=== PATIENT | female | born 2000 | race Caucasian/White ===

== ENCOUNTER 2022-05-22 01:15 | Inpatient (IN) ==
[2022-05-22] MEDS ORDERED: OXYTOCIN 30 UNITS/500 ML BAG IV PRN ×2 (01:28→04:26)
[2022-05-22] MEDS ORDERED: LACTATED RINGER'S 1,000 ML IV PRN (01:28)
[2022-05-22] MEDS ORDERED: SODIUM CHLORIDE 0.9% INJ 10 ML VIAL ONE (01:42)
[2022-05-22] MEDS ORDERED: LIDOCAINE 2%/EPINEPHRINE 1:200,000 20 ML SDV ONE (01:42)
[2022-05-22] MEDS ORDERED: fentaNYL citrate 100 MCG/2 ML VIAL ONE (01:42)
[2022-05-22] MEDS ORDERED: BUPIVACAINE 0.25% 30 ML VIAL ONE (01:42)
[2022-05-22] MEDS ORDERED: ePHEDrine sulfate 50 MG/ML AMP ONE (01:42)
[2022-05-22] MEDS ORDERED: fentaNYL 2MCG/ML ROPIVACAINE 1.25MG/ML 100 ML BAG EPI ONE (01:43)
[2022-05-22 02:01] LABS: Hematocrit (blood only) 30.2 % (34.1-44.9); Hemoglobin 10.1 g/dl (12.0-16.0); Mean Corpuscular Hemoglobin 28.1 pg (25.0-34.0); Mean Corpuscular Hgb Conc 33.4 g/dL (32.0-36.0); Mean Corpuscular Volume 84.1 fL (80.0-100.0); Mean Platelet Volume 9.7 fL (9.4-12.3); Platelet Count 248 K/uL (130-400); RDW Coefficient of Variation 12.9 % (11.5-14.5); RDW Standard Deviation 39.5 fL (36.4-46.3); Red Blood Count 3.59 M/uL (3.93-5.22); White Blood Count 15.08 K/ul (4.8-10.8)
--- NOTE | 2022-05-22 02:31 | Anesthesiology Consultation ---
Date of Service May 22, 2022 Assessment & Plan Chart Review Chart Review: Acceptable Risk for Labor Epidural Consults Requested none History Height/Weight Height: 5 ft 3 in Weight: 56.245 kg Allergies Allergy/AdvReac Type Severity Reaction Status Date / Time kiwi Allergy Severe "BURNT OFF Verified 05/19/22 08:21 TASTEBUDS" Medications Home Medications Medication Instructions Recorded Confirmed Last Taken prenat.vits,marti,[id number] 1 tab PO DAILY 11/10/21 05/21/22 05/20/22 Past Medical History Medical History Alteration in self-care as evidenced by altered eating Classic migraine with aura Late period No pertinent family history No pertinent past medical history Non-smoker Pigmented nevus Tinea versicolor Past Family History Family History Denies family history of Ovarian cancer Breast cancer Colorectal cancer Uterine cancer Past Surgical History Surgical History No pertinent past surgical history Social History Smoking Status: Former smoker Do You Dip or Chew Tobacco: No Hx Alcohol Use: No Hx Substance Use: No substance use type: does not use Physical Exam Vital Signs Last Vital Signs Temp 36.6 C 05/22/22 01:50 Pulse 81 05/22/22 02:29 Resp 22 05/22/22 01:50 BP 133/76 05/22/22 02:29 Pulse Ox 99 05/22/22 02:26 Testing Laboratory Results 05/22/22 01:50
[2022-05-22] MEDS ORDERED: NALOXONE HCL 1 MG in SODIUM CHLORIDE 0.9% 1000ML 1,000 ML IV PRN (02:32)
[2022-05-22] MEDS ORDERED: ePHEDrine sulfate 50 MG/ML AMP IV PRN (02:32)
[2022-05-22] MEDS ORDERED: fentaNYL 2MCG/ML ROPIVACAINE 1.25MG/ML 100 ML BAG EPI PRN (02:32)
[2022-05-22] MEDS ORDERED: NALOXONE HCL 0.4 MG/1 ML VIAL/CARP IV PRN (02:32)
[2022-05-22] MEDS ORDERED: diphenhydrAMINE 50 MG/ML VIAL IV PRN (02:32)
[2022-05-22] MEDS ORDERED: NALBUPHINE HCL INJ 10 MG/ML AMP IV PRN (02:32)
[2022-05-22] MEDS ORDERED: DIPHTHERIA/TETANUS/PERTUSSIS 0.5 ML SYR/VIAL IM ONE (04:26)
[2022-05-22] MEDS ORDERED: HYDROCORTISONE ACETATE 25 MG SUPP PR PRN (04:26)
[2022-05-22] MEDS ORDERED: ACETAMINOPHEN 325 MG TAB PO PRN (04:26)
[2022-05-22] MEDS ORDERED: BENZOCAINE 20% AER SPR 82.5 GM CAN EXT PRN (04:26)
--- NOTE | 2022-05-22 07:30 | History & Physical Report ---
Date of Service May 22, 2022 Assessment & Plan (1) Supervision of normal intrauterine in primigravida: (2) Poor weight gain of : (3) Normal labor and delivery: Lety López is a 22-year-old 39 weeks 4 days gestational age in active labor. Patient underwent spontaneous rupture of membranes for clear fluid. NST currently reactive. Patient will receive an epidural. labs pending vitals normal. History of Present Illness Primary Care Provider: KEVIN PCP Maribel is a 22-year-old admitted at 39 weeks 4 days gestational age in active labor with spontaneous rupture of membranes. otherwise complicated by poor maternal weight gain. OB Labs: Blood Type B Positive 11/11/21 Antibody ScreenD NEGATIVE 11/11/21 Hemoglobin 10.5 g/dL (12.0-16.0) L 03/17/22 Hematocrit 31.4 % (37-47) L 03/17/22 Mean Corpuscular Volume 86.1 fL (80-100) 11/11/21 Platelet Count 266 K/uL (130-400) 11/11/21 Rubella IgG Antibody Immune (Immune) 11/11/21 Rapid Plasma Reagin Nonreactive (Nonreactive) 11/11/21 Hepatitis B Surface Antigen Neg (Neg) 11/11/21 Hepatitis C Antibody Neg (Neg) 11/11/21 HIV (1&2) Ab and P24 Ag, 4th Gener Neg (Neg) 11/11/21 Glucose 1 Hour 50 gm Load 112 mg/dl (70-130) 03/17/22 OB Optional Labs: Chlamydia trachomatis RNA NOT DETECTED (NOT DETECTED) 11/11/21 Neisseria gonorrhoeae RNA NOT DETECTED (NOT DETECTED) 11/11/21 Labs Reviewed: Declines cf/sma--mln Declines cfdna--mln declined afp Allergies Allergy/AdvReac Type Severity Reaction Status Date / Time kiwi Allergy Severe "BURNT OFF Verified 05/19/22 08:21 TASTEBUDS" Home Medications Medication Instructions Recorded Confirmed Type prenat.vits,marti,ojr-[id number]-[id number] 1 tab PO DAILY 11/10/21 05/21/22 History Patient History Medical History (Updated 05/22/22 @ 07:29 by Sudhakar Velarde MD) Alteration in self-care as evidenced by altered eating Classic migraine with aura Late period No pertinent family history No pertinent past medical history Non-smoker Pigmented nevus Tinea versicolor Surgical History No pertinent past surgical history Family History Denies family history of Ovarian cancer Breast cancer Colorectal cancer Uterine cancer Social History (Updated 11/10/21 @ 13:37 by Franny Heaton) Smoking Status: Former smoker Tobacco Type: Cigarettes and E-cigarettes / Vaping Second Hand Exposure: No; Do You Dip or Chew Tobacco: No; Tobacco Cessation Education Requested by Patient: No Hx Alcohol Use: No Hx Substance Use: No Preferred Language: Slovenian Communication Ability: Effective Police Stenographer Required: No Beliefs That Will Affect Care: None marital status: Single marital status details: [place] Dc [phone] Current Living Situation: Other Current Living Situation Comment: lives with friend current occupational status: unemployed Other Information That Helps Us Care for You: No Feels Safe at Home: Yes Safety Concerns: Feels Safe At This Time Assistive Devices: None Physical Exam Genitourinary: Manual OB Exam: + cervical dilation 7 cm, + cervical effacement 90%, + station 0 and + amniotic fluid clear OB Exam Monitor Tracing: + external FHT monitor used, + external uterine monitor used, + category I and + normal FHT variability; no early decelerations present, no late decelerations present and no variable decelerations Exam per nurse Coding Level of Care Code None Diagnoses Supervision of normal intrauterine in primigravida Z34.00 Poor weight gain of O26.10 Normal labor and delivery O80
[2022-05-22] MEDS: FERROUS SULFATE 325 MG TAB PO SCH (08:11)
[2022-05-22] MEDS: PRENATAL VITAMIN 1 TAB PO SCH (08:11)
[2022-05-22] MEDS: DOCUSATE SODIUM 100 MG CAP PO SCH ×2 (08:11→21:30)
--- NOTE | 2022-05-22 08:37 | Anesthesia Procedure Note ---
Date of Service May 22, 2022 Anesthesia Post Epidural Note Vital Signs Vital Signs: Temp Pulse Resp BP Pulse Ox 36.7 C 100 H 20 119/67 99 05/22/22 07:35 05/22/22 07:35 05/22/22 07:35 05/22/22 07:35 05/22/22 04:21 Notes Mental Status: alert / awake / arousable and participated in evaluation Patient Amnestic to Procedure: No Nausea / Vomiting: adequately controlled Pain: adequately controlled Airway Patency, RR, SpO2: stable & adequate BP & HR: stable & adequate Hydration State: stable & adequate Neuraxial Anesthesia: was administered and sensory block resolved Anesthetic Complications: no major complications apparent and Pt Satisfied with anesthetic care Epidural: Removed without complications and With tip intact
--- NOTE | 2022-05-22 08:54 | Delivery Summary ---
DATE OF PROCEDURE: 05/22/2022 PROCEDURE: Normal spontaneous vaginal delivery. SURGEON: Sudhakar Velarde MD. PREOPERATIVE DIAGNOSES: 1. Single intrauterine at 39 weeks 4 days' gestational age. 2. Spontaneous rupture of membranes in active labor. 3. Poor maternal weight gain in . POSTOPERATIVE DIAGNOSES: 1. Single intrauterine at 39 weeks 4 days' gestational age. 2. Spontaneous rupture of membranes in active labor. 3. Poor maternal weight gain in . 4. Status post procedure. ESTIMATED BLOOD LOSS: 200 mL DRAINS: Straight cath completion of the case. URINE OUTPUT: Per straight cath. COMPLICATIONS: None. FINDINGS: Viable male with weight pending and Apgars of 8 and 9 at one and five minutes respe ctively. INDICATIONS: Maribel is a 22-year-old G1, P0, admitted at 39 weeks 4 days' gestational age, in active labor with spontaneous rupture of membranes. The patient progressed in labor without augmentation ov er approximately a 3-4 hour period and pushed over 1 contraction to achieve delivery. The patient di d receive an epidural for anesthesia. At initial check, the patient was found to be 6-7 cm dilated. DESCRIPTION OF PROCEDURE: The patient progressed to 10 cm dilated, 100% effaced, positive 3 station, pushed over intact perineum with epidural anesthesia and delivered a viable male , weight and Apgars as noted above. The head of the delivered in BINA position, restituted to left transver se. Nuchal cord was noted, which was easily reduced. Body and shoulders quickly followed. was noted to be vigorous upon delivery and 1 minute delayed cord clamping was initiated. Cord was th en double clamped and cut. Cord blood was obtained. Attention was then turned delivery of placenta, which was delivered intact with 3-vessel cord, gentle cord traction. On inspection of the perineum, vagina, and cervix, there was noted to be a left labi al laceration, which was repaired with 3-0 Vicryl interrupted stitch. Needle, sponge, and instrument counts were correct at the completion of the case with mother and stable in the immediate po st-delivery period. Job ID: [id number]
[2022-05-22] MEDS: IBUPROFEN 600 MG TAB PO PRN ×2 (11:15→21:30)
--- NOTE | 2022-05-23 05:52 | Obstetrical Progress Note ---
Date of Service <Ariane Stern DO - Last Filed: 05/23/22 07:23> May 23, 2022 Assessment & Plan <Ariane Stern DO - Last Filed: 05/23/22 07:23> (1) Normal labor and delivery: (2) Poor weight gain of : (3) Supervision of normal intrauterine in primigravida: Plan s/p PPD 1: -Vital signs reviewed and WNL, Tmax at 36.9 -Hemoglobin reviewed, 10.1 (05/22) -B+, GBS-, rubella immune -Patient is doing well clinically -Encourage ambulation, monitor and treat pain with motrin PRN, monitor lochia -Return to regular diet -Discussed discharge plan with patient, will follow up with Dr. Velarde at 6 week visit. <Irena Godwin MD, FACOG - Last Filed: 05/23/22 07:30> (1) Normal labor and delivery: (2) Poor weight gain of : (3) Supervision of normal intrauterine in primigravida: Subjective <Ariane Stern DO - Last Filed: 05/23/22 07:23> Maribel is a 22 y/o female who is PPD #1 following at 39 4/7 weeks. She had poor weight gain during this . Patient was seen and examined at bedside. She reports feeling well overall this morning. Denies any abdominal cramping & pain well managed on analgesics. Voiding without issue. Had some nausea yesterday but doing better today. Is able to ambulate. Has been passing gas and not had a bowel movement. Has some persistent lochia with some improvement this morning. Currently breast feeding. Constitutional: no fever, no chills or no sweats Respiratory: no cough, no dyspnea or no wheezing Cardiovascular: no chest pain, no palpitations or no calf pain Breast: no breast pain Genitourinary (female): no dysuria Neurologic: no headache(s) Physical Exam <Ariane Stern DO - Last Filed: 05/23/22 07:23> Constitutional WD/WN, vitals as above no acute distress Respiratory no respiratory distress Auscultation: lungs clear to auscultation bilaterally; no rales, no rhonchi and no wheezes Cardiovascular RRR, no murmur, no edema Extremities: no calf tenderness and no edema Negative Muriel's sign bilaterally. Gastrointestinal (Abdomen) Inspection/Auscultation: normal bowel sounds Genitourinary Uterine fundus firm, palpable below the umbilicus. Results & Data ([facility]) <Ariane Stern DO - Last Filed: 05/23/22 07:23> Vital Signs (Past 12 Hours) Vital Signs Temp Pulse Resp BP Pulse Ox O2 Del Method 05/23/22 03:20 36.5 C 60 16 99/65 L 99 Room Air 05/23/22 00:55 36.6 C 64 16 113/72 98 Room Air 05/22/22 20:55 36.9 C 77 18 123/81 97 Room Air <Irena Godwin MD, FACOG - Last Filed: 05/23/22 07:30> Co-Signing Physician Notes Resident Physician Supervision Note: I interviewed and examined the patient. Discussed with Dr. Stern and agree with findings and plan as documented in the note. Any exceptions or clarifications are listed here: Doing well. Plan d/c. Instructions given. Documented By: Irena Godwin MD, FACOG
[2022-05-23 06:34] LABS: Hematocrit (blood only) 28.6 % (34.1-44.9); Hemoglobin 9.6 g/dl (12.0-16.0)
[2022-05-23] MEDS: IBUPROFEN 600 MG TAB PO PRN (07:51)
[2022-05-23] MEDS: FERROUS SULFATE 325 MG TAB PO SCH (08:38)
[2022-05-23] MEDS: DOCUSATE SODIUM 100 MG CAP PO SCH (08:38)
[2022-05-23] MEDS: PRENATAL VITAMIN 1 TAB PO SCH (08:38)
[2022-05-23] MEDS ORDERED: bisacodyL 5 MG TABEC PO SCH (20:00)
[2022-05-24] MEDS ORDERED: bisacodyL 10 MG SUPP PR PRN
== END 2022-05-23 14:05 | disposition home or self-care (01) | DRG 807 ==
LOC: OPB 01:15 → 4S1 01:23 → 4E2 08:35
DX: O70.0 First degree perineal laceration during delivery; O26.13 Low weight gain in pregnancy, third trimester; O69.81X0 Labor and delivery complicated by cord around neck, without compression, not applicable or unspecified; Z91.018 Allergy to other foods; Z3A.39 39 weeks gestation of pregnancy; Z37.0 Single live birth; Z87.891 Personal history of nicotine dependence